=== PATIENT | female | born 1970 | race Caucasian/White ===

== ENCOUNTER 2016-05-29 05:35 | Day surgery (SDC) | payer BC ==
--- NOTE | ~2016-05-29 | OP ---
Record Of Operation [facility] [address] [place]. [address] NAME: RICHARD SEYMOUR : 68 STATUS : REG [facility] [place] PAT#: [id number] AGE: 45 ADM/REG DATE : 05/29/16 MR#: [id number] REPORT SERV DATE: 05/29/16 DICTATED BY: SOSA GAN DATE: 05/29/16 REPORT STATUS : Draft TRANSCRIBED BY: MODL DATE: 05/29/16 DATE OF PROCEDURE: 05/29/2016 PREOPERATIVE DIAGNOSIS: A 2.2 cm left thyroid nodule. POSTOPERATIVE DIAGNOSIS: A 2.2 cm left thyroid nodule. PROCEDURE PERFORMED: Left thyroid lobectomy. SURGEON: Sosa Gan M.D. SUPERVISING EDITOR NEWS REEL: Seth Pa. ANESTHESIA: General with nerve integrity monitoring system endotracheal tube. COMPLICATIONS: None. CONDITION: Stable to recovery. INDICATIONS: 45-year-old female with left thyroid nodule, 2.2 cm. Ultrasound-guided needle biopsy showing a benign nodule. The patient elected to have this removed despite the benign findings, and the risks, benefits, and alternatives were discussed. PROCEDURE IN DETAIL: The patient was identified in the preop holding, taken back to the operating room, and placed supine on the operating room table. General anesthesia was established. This was done using a nerve integrity monitoring system endotracheal tube and the anterior tap test was positive, and the placement of the tube with a GlideScope was confirmed. A small incision was marked with a surgical ink pen, anterior neck in a pre- existing skin crease, approximately 4 cm. It was then infiltrated subcutaneously with 1% lidocaine with 1:100,000 epinephrine. She was prepped and draped in a standard fashion for the operation. Using 2.5x loupe magnification and headlight illumination, the operation commenced. A 15 blade was used to make the skin incision. Subplatysmal flaps were elevated and the flaps were retracted with 2-0 silk sutures. The strap muscles were divided in the midline and mobilized off the left thyroid lobe. The cricothyroid space was developed. A Mack clamp was placed, and the upper pole vessels were secured using a small hemoclip and Harmonic scalpel. The gland was rotated out of the visceral compartment. The upper and lower parathyroids were identified and preserved. The recurrent laryngeal nerve was identified and confirmed with the nerve stimulating probe and a snapshot picture was taken. The gland was dissected off the nerve and Schmitz's ligament, transected at the isthmus and sent to Pathology for frozen section analysis showing benign findings. Frozen section showed benign findings. The wound was irrigated. Bipolar cautery was used for hemostasis, and the strap muscles were closed with 3-0 Vicryl suture interrupted leaving a small space for fluid egress inferiorly. The platysma muscle was closed with 3-0 interrupted Vicryl suture followed by a Record Of Operation [address] [place]. [address] NAME: RICHARD SEYMOUR : 68 STATUS : REG [facility] [place] PAT#: [id number] AGE: 45 ADM/REG DATE : 05/29/16 MR#: [id number] REPORT SERV DATE: 05/29/16 DICTATED BY: SOSA GAN DATE: 05/29/16 REPORT STATUS : Draft TRANSCRIBED BY: MODL DATE: 05/29/16 5-0 running Monocryl subcuticular stitch and Steri-Strips. At the end of the case, the right recurrent laryngeal nerve was stimulated with the probe and a snapshot photograph was taken, and placed in the chart showing good nerve function. PH/MODL Sosa Gan M.D. / [id number] CC: Krista Arnold M.D.
[~2016-05-29 05:35] MED LIST: *DENIES; ANADS PO; DSS PO; HEMOCYTET PO; PCET PO; ZOFRAN8 PO; [UNRECOGNIZED DRUG - REMARK]
[2016-05-29 08:20] LABS: PTH TAT 0 Hrs 20 Mins
== END 2016-05-29 12:55 | disposition home or self-care (01) ==
LOC: SDC 05:35
PROVIDERS: Specialist
PROC: 0GTG0ZZ Resection of Left Thyroid Gland Lobe, Open Approach (ICD-10-PCS; principal; 2016-05-29 07:15)
DX: D34 Benign neoplasm of thyroid gland (principal); Z79.899 Other long term (current) drug therapy; Z79.891 Long term (current) use of opiate analgesic; Z88.8 Allergy status to other drugs, medicaments and biological substances; Z90.711 Acquired absence of uterus with remaining cervical stump; Z98.890 Other specified postprocedural states
CPT/HCPCS: 83970; 88307; 88331; 93005; A9270-GY; J0690; J2250; J2270; J2405; J2710; J3010